=== PATIENT | male | born 1975 | race Caucasian/White ===

== ENCOUNTER 2017-04-04 16:57 | Emergency (ER) | payer OTHER ==
[2017-04-04] MEDS ORDERED: SODIUM CHLORIDE 0.9% 1,000 ML IV STA (17:22)
[2017-04-04 17:42] LABS: Basophils # (A) 0.1 k/uL (0-0.2); Basophils % (A) 1 %; CH 31.6; CHCM 35.4; Eosinophils # (A) 0.3 k/uL (0-0.7); Eosinophils % (A) 3 %; HCT 41.5 % (39.0-53.0); HDW 2.54; HGB 14.3 gm/dL (13.0-17.5); Luc # (Auto) 0.13; Luc % (Auto) 2; Lymphocytes # (A) 1.9 k/uL (1.0-4.8); Lymphocytes % (A) 22 %; MCH 30.8 pg (25.0-35.0); MCHC 34.4 g/dL (31.0-37.0); MCV 89.5 fL (80.0-100.0); Mean Platelet Volume 7.8; Monocytes # (A) 0.5 k/uL (0-1.0); Monocytes % (A) 6 %; Neutrophils # (A) 5.7 k/uL (1.3-7.7); Neutrophils % (A) 66 %; RBC 4.64 m/uL (4.30-5.90); RDW 12.8 % (11.5-15.5); WBC 8.6 k/uL (3.8-10.6); WBC (Perox) 8.17
[2017-04-04 17:46] LABS: INR 1.1 (<1.1); Partial Thromboplastin Time 25.3 sec (22.0-30.0)
[2017-04-04 17:47] LABS: ALT 29 U/L (21-72); AST 22 U/L (17-59); Alkaline Phosphatase 54 U/L (38-126); Anion Gap 11 mmol/L; Blood Urea Nitrogen 6 mg/dL (9-20); Calcium 10.1 mg/dL (8.4-10.2); Carbon Dioxide 28 mmol/L (22-30); Chloride 105 mmol/L (98-107); Glucose 91 mg/dL (74-99); Non-African American GFR(MDRD) >60 (>60 ml/min/1.73 sqM); Potassium 3.5 mmol/L (3.5-5.1); Sodium 144 mmol/L (137-145); Total Bilirubin 0.6 mg/dL (0.2-1.3); Total Protein 7.6 g/dL (6.3-8.2)
--- NOTE | 2017-04-04 17:57 | CT ---
EXAMINATION TYPE: CT brain wo con DATE OF EXAM: 04/04/2017 5:44 PM COMPARISON: 01/20/2015 HISTORY: 42-year-old male complains of entire body right side numbness. TECHNIQUE: Examination was done in axial plane without intravenous contrast. Coronal and sagittal r econstructions performed. CT DLP: 1041.5 mGycm Automated exposure control for dose reduction was used. FINDINGS: There is no evidence of acute intracranial hemorrhage, acute ischemic changes, mass, mass-effect, or extra-axial fluid collection. There is no effacement of cerebral sulci or basal subarachnoid cister ns. There is no hydrocephalus. There is no midline shift. Johnson-white matter distinction is preserv ed. Orbits and globes are intact. Paranasal sinuses and mastoid air cells well pneumatized. IMPRESSION: No acute intracranial abnormality seen.
--- NOTE | 2017-04-04 17:59 | XR ---
EXAMINATION TYPE: XR chest 2V DATE OF EXAM: 04/04/2017 5:50 PM COMPARISON: None HISTORY: 42-year-old male with right-sided weakness, altered mental status TECHNIQUE: Frontal and lateral views FINDINGS: The cardiomediastinal silhouette, aorta, and pulmonary vasculature are within normal limits. Mild bro nchial wall thickening has a chronic appearance, possible chronic bronchitis/asthma. Lungs and pleura l spaces otherwise clear. IMPRESSION: Chronic appearing changes without acute cardiopulmonary process.
[2017-04-04 18:01] LABS: Creatine Kinase 102 U/L (55-170)
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
[2017-04-04 18:15] LABS: Creatine Kinase MB 0.5 ng/mL (0.0-2.4); Troponin I <0.012 ng/mL (0.000-0.034)
[2017-04-04 18:25] LABS: Appearance,Urine Clear (Clear); Bilirubin,Urine Negative (Negative); Glucose,Urine (UA) Negative (Negative); Ketones,Urine Negative (Negative); Leukocyte Esterase,Urine Negative (Negative); Nitrite,Urine Negative (Negative); PH, Urine 7.5 (5.0-8.0); Protein,Urine Negative (Negative); Specific Gravity,Urine 1.002 (1.001-1.035); UA Billing (MACRO vs. MICRO) CHEM; Urobilinogen,Urine <2.0 mg/dL (<2.0)
[2017-04-04 18:48] VITALS: TEMP 98.6
[2017-04-04] MEDS ORDERED: ASPIRIN 81 MG CHEW PO STA (19:24)
[2017-04-04 19:44] VITALS: BP 122/82; PULSE 77; RESP 20
== END 2017-04-04 20:17 | disposition home or self-care (01) ==
LOC: EC 16:57
DX: M62.81 Muscle weakness (generalized) (principal); F17.200 Nicotine dependence, unspecified, uncomplicated
CPT/HCPCS: 36415; 70450; 71020; 80053; 80306; 81003; 82550; 82553; 84443; 84484; 85025; 85610; 85730; 93005; 96360; 96361; 99284

== ENCOUNTER → 2017-05-18 | Outpatient (CLI) | payer OTHER ==
--- NOTE | 2017-05-18 08:12 | US ---
EXAMINATION TYPE: US carotid duplex BILAT DATE OF EXAM: 05/18/2017 COMPARISON: NONE CLINICAL HISTORY: 42-year-old male G45.9 Transient cerebral ischemic attack, unspecified. TIA, pt sta sara right side numbness TECHNIQUE: Carotid duplex ultrasound examination. Indirect Doppler criteria was utilized. FINDINGS: EXAM MEASUREMENTS: RIGHT: Peak Systolic Velocity (PSV) cm/sec ----- Right CCA: 95.2 ----- Right ICA: 83.1 ----- Right ECA: 98.5 ICA/CCA ratio: 0.9 RIGHT: End Diastole cm/sec ----- Right CCA: 38.0 ----- Right ICA: 39.1 ----- Right ECA: 25.9 LEFT: Peak Systolic Velocity (PSV) cm/sec ----- Left CCA: 100.0 ----- Left ICA: 78.7 ----- Left ECA: 102.6 ICA/CCA ratio: 0.8 LEFT: End Diastole cm/sec ----- Left CCA: 41.8 ----- Left ICA: 42.4 ----- Left ECA: 35.2 VERTEBRALS (direction of flow): Right Vertebral: Antegrade Left Vertebral: Antegrade CORONER NOTES: No significant stenosis seen IMPRESSION: No hemodynamically significant stenosis appreciated within either internal carotid artery. Criteria for Assigning % of Stenosis / Diameter reduction (Estimation based on the indirect measurements of the internal carotid artery velocities (ICA PSV). 1. Normal (no stenosis)=ICA PSV < 125 cm/s: ratio < 2.0: ICA EDV<40 cm/s. 2. Less than 50% stenosis=ICA PSV < 125 cm/s: ratio < 2.0: ICA EDV<40 cm/s. 3. 50 to 69% stenosis=ICA PSV of 125 to 230 cm/s: ration 2.0 ? 4.0: ICA EDV 40-100 cm/s. 4. Greater than 70% stenosis to near occlusion= ICA PSV > 230 cm/s: ratio > 4.0: ICA EDV > 100 cm/s. 5. Near occlusion= ICA PSV velocities may be low or undetectable: variable ratio and ICA EDV. 6. Total occlusion=unable to detect flow.
[2017-05-18 08:50] LABS: CH 31.3; CHCM 34.8; HDW 2.37; HGB 14.9 gm/dL (13.0-17.5); MCH 30.5 pg (25.0-35.0); MCHC 33.9 g/dL (31.0-37.0); MCV 90.2 fL (80.0-100.0); Mean Platelet Volume 7.7; RBC 4.87 m/uL (4.30-5.90); RDW 14.3 % (11.5-15.5); WBC 5.7 k/uL (3.8-10.6)
[2017-05-18 09:06] LABS: ALT 35 U/L (21-72); AST 23 U/L (17-59); Alkaline Phosphatase 76 U/L (38-126); Anion Gap 15 mmol/L; Blood Urea Nitrogen 12 mg/dL (9-20); Calcium 10.3 mg/dL (8.4-10.2); Carbon Dioxide 25 mmol/L (22-30); Chloride 104 mmol/L (98-107); Cholesterol 212 mg/dL (<200); Glucose 94 mg/dL (74-99); HDL Cholesterol 58 mg/dL (40-60); Non-African American GFR(MDRD) >60 (>60 ml/min/1.73 sqM); Potassium 4.4 mmol/L (3.5-5.1); Sodium 144 mmol/L (137-145); Total Bilirubin 0.8 mg/dL (0.2-1.3); Total Protein 8.3 g/dL (6.3-8.2); Triglycerides 145 mg/dL (<150)
[2017-05-18 09:10] LABS: INR 1.1 (<1.1); Prothrombin Time 10.7 sec (9.0-12.0)
--- NOTE | 2017-05-18 09:12 | XR ---
EXAMINATION TYPE: XR lumbar spine with bend/flex DATE OF EXAM: 05/18/2017 COMPARISON: NONE HISTORY: Low back pain TECHNIQUE: Three-view lumbar spine with additional flexion and extension and lateral views in the sta nding position FINDINGS: There 5 lumbar-type vertebral bodies. The pedicles are intact. A metallic foreign body is a t the level of the sacrum. Disc heights are preserved. Vertebral body heights are preserved. Vertebral body alignment is preserved with flexion and extension. No subluxation is evident. IMPRESSION: 1. Normal three-view lumbar spine. 2. Normal flexion and extension
--- NOTE | 2017-05-18 09:14 | XR ---
EXAMINATION TYPE: XR cervical spine w flex/ext DATE OF EXAM: 05/18/2017 COMPARISON: NONE HISTORY: Cephalgia TECHNIQUE: 5 view cervical spine with flexion and extension views FINDINGS: Neural foramen are patent. Prevertebral space is normal. Disc heights are preserved. Verteb ral body heights are preserved. Posterior spinal lamellar line is intact. Vertebral body alignment is preserved through flexion and extension. There is some limitation of the odontoid with overlying inc isors. IMPRESSION: 1. Normal cervical spine. 2. Preserved alignment with flexion and extension.
--- NOTE | 2017-05-18 09:15 | XR ---
EXAMINATION TYPE: XR thoracic spine complete DATE OF EXAM: 05/18/2017 COMPARISON: NONE HISTORY: Thoracic spine pain TECHNIQUE: Three-view thoracic spine FINDINGS: Disc heights are preserved. Vertebral body heights are preserved. Alignment is normal. Ther e are 12 thoracic type vertebral bodies. The pedicles are intact. IMPRESSION: 1. Normal thoracic spine.
[2017-05-20 13:50] LABS: Protein C (Activity) 119 % (70 - 130); Protein S (Activity) 118 % (65 - 140); Protein S Antigen 124 % (50 - 140)
== END | disposition home or self-care (01) ==
LOC: RADUSWWP 07:43
PROVIDERS: ATTEND Psychiatry & Neurology Neurology
DX: G45.9 Transient cerebral ischemic attack, unspecified (principal); M54.2 Cervicalgia; M54.5 Low back pain; M54.6 Pain in thoracic spine; R20.2 Paresthesia of skin
CPT/HCPCS: 72052; 72072; 72114; 80053; 80061; 81240; 81241; 81291; 83090; 85027; 85300; 85301; 85302; 85303; 85305; 85306; 85379; 85384; 85610; 85613; 85730; 86147; 93880

== ENCOUNTER 2019-04-24 22:08 | Emergency (ER) | payer OTHER ==
[2019-04-24] MEDS ORDERED: SODIUM CHLORIDE 0.9% 1,000 ML IV STA (22:36)
[2019-04-24] MEDS ORDERED: KETOROLAC 30 MG/ML 1 ML VIAL IVP STA (22:36)
[2019-04-24] MEDS ORDERED: methylPREDNISolone SOD SUCCI 125 MG/2 ML VIAL IV STA (22:36)
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
[2019-04-24 23:11] LABS: ALT 35 U/L (21-72); AST 43 U/L (17-59); African American GFR (CKD) >90 (>60 ml/min/1.73 sqM); Albumin 4.9 g/dL (3.5-5.0); Alkaline Phosphatase 69 U/L (38-126); Anion Gap 12 mmol/L; Blood Urea Nitrogen 7 mg/dL (9-20); Calcium 9.4 mg/dL (8.4-10.2); Carbon Dioxide 24 mmol/L (22-30); Chloride 111 mmol/L (98-107); Glucose 90 mg/dL (74-99); Magnesium 2.2 mg/dL (1.6-2.3); Potassium 4.2 mmol/L (3.5-5.1); Sodium 147 mmol/L (137-145); Total Bilirubin 0.3 mg/dL (0.2-1.3); Total Protein 7.9 g/dL (6.3-8.2)
--- NOTE | 2019-04-24 23:46 | CT ---
EXAM: CT Lumbar Spine Without Intravenous Contrast CLINICAL HISTORY: ITS.REASON CT Reason: Pain TECHNIQUE: Axial computed tomography images of the lumbar spine without intravenous contrast. CTDI is 20 mGy and DLP is 625 mGy-cm. This CT exam was performed using one or more of the following dose reduction techniques: automated exposure control, adjustment of the mA and/or kV according to patient size, and/or use of iterative reconstruction technique. COMPARISON: 01/20/15 CT lumbar spine FINDINGS: Vertebrae: Unchanged. In the left sacrum. No acute fracture. Discs/spinal canal/neural foramina: No spinal canal stenosis. Soft tissues: Subcentimeter stone in the gallbladder neck. IMPRESSION: No acute fracture or subluxation. Subcentimeter stone in the gallbladder neck.
[2019-04-24 23:55] VITALS: RESP 16
[2019-04-25 00:47] VITALS: BP 119/62; PULSE 67; TEMP 98.6
== END 2019-04-25 00:50 | disposition home or self-care (01) ==
LOC: EC 22:08
DX: S39.012A Strain of muscle, fascia and tendon of lower back, initial encounter (principal); L98.9 Disorder of the skin and subcutaneous tissue, unspecified; F17.200 Nicotine dependence, unspecified, uncomplicated; Z87.828 Personal history of other (healed) physical injury and trauma
CPT/HCPCS: 36415; 80053; 83735; 72131; 99284; 96374; 96375; 96361 ×2; J2930; J1885

== ENCOUNTER 2019-06-23 10:24 | Emergency (ER) | payer OTHER ==
[2019-06-23] MEDS ORDERED: PANTOPRAZOLE 40 MG/10 ML VIAL IVP STA (10:57)
[2019-06-23] MEDS ORDERED: SODIUM CHLORIDE 0.9% 1,000 ML IV STA ×2 (10:57)
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
[2019-06-23 11:53] LABS: ALT 30 U/L (21-72); AST 31 U/L (17-59); African American GFR (CKD) >90 (>60 ml/min/1.73 sqM); Albumin 4.8 g/dL (3.5-5.0); Alkaline Phosphatase 73 U/L (38-126); Amylase 38 U/L (30-110); Anion Gap 12 mmol/L; Blood Urea Nitrogen 6 mg/dL (9-20); Carbon Dioxide 23 mmol/L (22-30); Chloride 103 mmol/L (98-107); Glucose 91 mg/dL (74-99); Potassium 3.9 mmol/L (3.5-5.1); Sodium 138 mmol/L (137-145)
[2019-06-23 12:01] LABS: INR 0.9 (<1.2); Partial Thromboplastin Time 26.4 sec (22.0-30.0); Prothrombin Time 10.1 sec (9.0-12.0)
[2019-06-23 12:04] LABS: Basophils % (A) 1 %; Eosinophils # (A) 0.3 k/uL (0-0.7); Eosinophils % (A) 5 %; HCT 44.2 % (39.0-53.0); HGB 15.3 gm/dL (13.0-17.5); Lymphocytes # (A) 1.3 k/uL (1.0-4.8); Lymphocytes % (A) 23 %; MCH 33.7 pg (25.0-35.0); MCHC 34.5 g/dL (31.0-37.0); MCV 97.7 fL (80.0-100.0); Monocytes # (A) 0.4 k/uL (0-1.0); Monocytes % (A) 7 %; Neutrophils # (A) 3.7 k/uL (1.3-7.7); Neutrophils % (A) 64 %; Platelet Count 205 k/uL (150-450); RBC 4.52 m/uL (4.30-5.90); RDW 13.7 % (11.5-15.5); WBC 5.8 k/uL (3.8-10.6)
--- NOTE | 2019-06-23 12:17 | CT ---
EXAMINATION TYPE: CT brain wo con DATE OF EXAM: 06/23/2019 COMPARISON: 04/04/2017 HISTORY: Headache with visual disturbance CT DLP: 1099.4 mGycm. Automated Exposure Control for Dose Reduction was Utilized. TECHNIQUE: CT scan of the head is performed without contrast. FINDINGS: There is no acute intracranial hemorrhage, mass effect, or midline shift identified. The ventricles and sulci are within normal limits in size. The globes are intact and the visualized sin uses are clear. IMPRESSION: No acute intracranial hemorrhage, mass effect, or midline shift is seen. If there is con cern for acute ischemia correlate with MRI .
--- NOTE | 2019-06-23 12:42 | CT ---
EXAMINATION TYPE: CT abdomen pelvis w con DATE OF EXAM: 06/23/2019 COMPARISON: 01/20/2015 HISTORY: Generalized pain with nausea and diarrhea on and off for 1 month with dark red in stool CT DLP: 747.5 mGycm Automated exposure control for dose reduction was used. CONTRAST: CT scan of the abdomen pelvis is performed with IV Contrast, patient injected with 100 mL of Isovue 3 00. FINDINGS- LUNG BASES-subsegmental changes at the lung bases suggestive of atelectasis. LIVER/GB-tiny gallstone or polyp noted. PANCREAS- No gross abnormality is seen. SPLEEN- No gross abnormality is seen. ADRENALS- No gross abnormality is seen. KIDNEYS/BLADDER- no hydronephrosis nephrolithiasis or renal mass. BOWEL-bowel gas pattern is nonspecific. There is evidence of previous extensive postsurgical change. Air seen throughout the colon to the level the rectum. Small hiatal hernia noted.. LYMPH NODES- No greater than 1cm abdominal or pelvic lymph nodes areappreciated. OSSEOUS STRUCTURES-hypertrophic and degenerative change of the spine metallic foreign body overlying the left sacrum.. OTHER- fat-containing anterior abdominal wall hernia in the periumbilical region. No free fluid. No free air. Bladder distends normally. IMPRESSION- 1. Nonspecific gas pattern with no diagnostic evidence of obstruction. There is extensive postsurgica l change. 2. Tiny gallstone favored over gallbladder polyp 3. Basilar subsegmental consolidation more typical of atelectasis than pneumonia correlate clinically .
[2019-06-23 12:48] LABS: Appearance,Urine Clear (Clear); Bilirubin,Urine Negative (Negative); Blood,Urine Negative (Negative); Color,Urine Light Yellow; Glucose,Urine (UA) Negative (Negative); Ketones,Urine Trace (Negative); Leukocyte Esterase,Urine Negative (Negative); Nitrite,Urine Negative (Negative); Protein,Urine Negative (Negative); Specific Gravity,Urine 1.014 (1.001-1.035); Urobilinogen,Urine <2.0 mg/dL (<2.0)
[2019-06-23 14:12] VITALS: BP 127/94; PULSE 97; RESP 17; TEMP 97.9
== END 2019-06-23 14:11 | disposition home or self-care (01) ==
LOC: EC 10:24
DX: H53.8 Other visual disturbances (principal); R11.2 Nausea with vomiting, unspecified; Z86.19 Personal history of other infectious and parasitic diseases; F17.200 Nicotine dependence, unspecified, uncomplicated
CPT/HCPCS: 36415; 93005; 80053; 82150; 83605; 83690; 85025; 85610; 85730; 82272; 81003; 87086; 70450; 74177; 99285; 96374; 96361 ×2; C9113; Q9967

== ENCOUNTER 2020-09-19 03:25 | Emergency (ER) | payer OTHER ==
[2020-09-19 03:31] VITALS: RESP 18; TEMP 98.2
[2020-09-19] MEDS ORDERED: MAG HYDROX/AL HYDROX/SIMETH 30 ML, HYOSCYAMINE ELIXIR 10 ML, LIDOCAINE VISCOUS 2% 10 ML PO STA ×3 (03:45)
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
[2020-09-19 04:04] LABS: Basophils # (A) 0.1 k/uL (0-0.2); Basophils % (A) 2 %; Eosinophils # (A) 0.2 k/uL (0-0.7); Eosinophils % (A) 5 %; HCT 44.8 % (39.0-53.0); Lymphocytes % (A) 21 %; MCH 32.8 pg (25.0-35.0); MCHC 33.6 g/dL (31.0-37.0); MCV 97.7 fL (80.0-100.0); Mean Platelet Volume 8.8; Monocytes # (A) 0.3 k/uL (0-1.0); Monocytes % (A) 6 %; Neutrophils # (A) 3.3 k/uL (1.3-7.7); Neutrophils % (A) 65 %; Platelet Count 147 k/uL (150-450); RBC 4.58 m/uL (4.30-5.90); RDW 11.6 % (11.5-15.5)
[2020-09-19 04:13] LABS: ALT 75 U/L (4-49); AST 65 U/L (17-59); African American GFR (CKD) >90 (>60 ml/min/1.73 sqM); Albumin 4.3 g/dL (3.5-5.0); Alkaline Phosphatase 79 U/L (38-126); Amylase <30 U/L (30-110); Anion Gap 10 mmol/L; Blood Urea Nitrogen 8 mg/dL (9-20); Calcium 9.5 mg/dL (8.4-10.2); Carbon Dioxide 21 mmol/L (22-30); Chloride 101 mmol/L (98-107); Glucose 111 mg/dL (74-99); Lipase 106 U/L (23-300); Non-African American GFR(CKD) >90 (>60 ml/min/1.73 sqM); Potassium 3.8 mmol/L (3.5-5.1); Sodium 132 mmol/L (137-145); Total Bilirubin 0.9 mg/dL (0.2-1.3); Total Protein 7.7 g/dL (6.3-8.2)
--- NOTE | 2020-09-19 04:50 | CT ---
EXAM: CT Abdomen and Pelvis Without Intravenous Contrast CLINICAL HISTORY: abdominal pain TECHNIQUE: Axial computed tomography images of the abdomen and pelvis without intravenous contrast. CTDI is 9.57 mGy and DLP is 536.3 mGy-cm. This CT exam was performed using one or more of the following dose reduction techniques: automated exposure control, adjustment of the mA and/or kV according to patient size, and/or use of iterative reconstruction technique. COMPARISON: No relevant prior studies available. FINDINGS: Lung bases: Unremarkable. No mass. No consolidation. ABDOMEN: Liver: Mild hepatomegaly, measuring up to 17.7 cm in greatest craniocaudad dimension, with steatosis. Gallbladder and bile ducts: Cholelithiasis in a mildly prominent gallbladder. Pancreas: Unremarkable. No ductal dilation. Spleen: Unremarkable. No splenomegaly. Adrenals: Unremarkable. No mass. Kidneys and ureters: Unremarkable. No obstructing stones. No hydronephrosis. Stomach and bowel: Postoperative changes involving the proximal small bowel. Lipomatosis of the colon, nonspecific, although can be seen in chronic IBD. No obstruction. No mucosal thickening. PELVIS: Appendix: Status post appendectomy. Bladder: Urinary bladder wall thickening likely present, which may represent chronic bladder outlet obstruction given the enlarged prostate. Cystitis would be included in the differential. No stones. Reproductive: Prostatomegaly, measuring up to 5.2 cm in greatest transverse dimension. ABDOMEN and PELVIS: Intraperitoneal space: Unremarkable. No free air. No significant fluid collection. Bones/joints: No acute fracture. No dislocation. Soft tissues: Moderate left sided fat-containing paraumbilical hernia. Moderate/large fat-containing supraumbilical hernia. Vasculature: Mild vascular calcifications involving the intra- abdominal aorta. No abdominal aortic aneurysm. Lymph nodes: Unremarkable. No enlarged lymph nodes. IMPRESSION: 1. Cholelithiasis in a mildly prominent gallbladder. Right upper quadrant ultrasound is recommended for further evaluation. 2. Mild hepatomegaly with steatosis. 3. Urinary bladder wall thickening likely present, which may represent chronic bladder outlet obstruction given the enlarged prostate. Cystitis would be included in differential. Correlate with urinalysis. 4. Moderate left sided fat-containing paraumbilical hernia. Moderate/large fat-containing supraumbilical hernia.
[2020-09-19 06:10] LABS: Appearance,Urine Clear (Clear); Bilirubin,Urine Negative (Negative); Blood,Urine Negative (Negative); Color,Urine Yellow; Glucose,Urine (UA) Negative (Negative); Ketones,Urine 1+ (Negative); Leukocyte Esterase,Urine Negative (Negative); Nitrite,Urine Negative (Negative); Protein,Urine Trace (Negative); Specific Gravity,Urine 1.019 (1.001-1.035)
[2020-09-19] MEDS ORDERED: NALOXONE 0.4 MG/ML 1 ML VIAL IV PRN (06:15)
[2020-09-19 06:37] VITALS: BP 141/92; PULSE 98
== END 2020-09-19 06:50 | disposition home or self-care (01) ==
LOC: EC 03:25
DX: K43.9 Ventral hernia without obstruction or gangrene (principal); K42.9 Umbilical hernia without obstruction or gangrene; F17.200 Nicotine dependence, unspecified, uncomplicated; Z90.89 Acquired absence of other organs
CPT/HCPCS: 36415; 74176; 80053; 81003; 82150; 83605; 83690; 84484; 85025; 93005; 99284

== ENCOUNTER → 2020-10-02 | Outpatient (CLI) | payer OTHER ==
[2020-10-02 13:25] LABS: Basophils # (A) 0.1 k/uL (0-0.2); Basophils % (A) 1 %; Eosinophils # (A) 0.3 k/uL (0-0.7); Eosinophils % (A) 4 %; HCT 44.6 % (39.0-53.0); HGB 14.8 gm/dL (13.0-17.5); Lymphocytes # (A) 1.5 k/uL (1.0-4.8); Lymphocytes % (A) 22 %; MCH 31.8 pg (25.0-35.0); MCHC 33.2 g/dL (31.0-37.0); MCV 95.7 fL (80.0-100.0); Mean Platelet Volume 8.1; Monocytes # (A) 0.4 k/uL (0-1.0); Monocytes % (A) 6 %; Neutrophils # (A) 4.5 k/uL (1.3-7.7); Neutrophils % (A) 66 %; Platelet Count 270 k/uL (150-450); RBC 4.66 m/uL (4.30-5.90); RDW 12.3 % (11.5-15.5); WBC 6.8 k/uL (3.8-10.6)
== END | disposition home or self-care (01) ==
LOC: LABPAT 11:03
PROVIDERS: ATTEND Surgery
DX: Z01.818 Encounter for other preprocedural examination (principal); K43.0 Incisional hernia with obstruction, without gangrene
CPT/HCPCS: 36415; 85025

== ENCOUNTER 2020-10-05 06:17 | Day surgery (SDC) | payer OTHER ==
[2020-10-04 09:04] VITALS: BMI 25.8
[~2020-10-05 06:17] MED LIST: ACETAMINOPHEN TAB 500 MG TAB PO ONE; DEXAMETHASONE SOD PHOSPHATE 4 MG/ML 1 ML VIAL IV ONE; HEPARIN SODIUM,PORCINE 5,000 UNIT/ML 1 ML VIAL SQ ONE; HYDROmorphone 0.5 MG/0.5 ML SYRINGE IVP PRN; LACTATED RINGERS 1,000 ML IV SCH; MIDAZOLAM 2 MG/2 ML VIAL IV PRN; ONDANSETRON 4 MG/2 ML VIAL IVP ONE; SCOPOLAMINE 1.5MG/72HR PATCH TRANSDERM ONE
[2020-10-05] MEDS ORDERED: MIDAZOLAM 2 MG/2 ML VIAL ONE (07:44)
[2020-10-05] MEDS ORDERED: SUCCINYLCHOLINE CHLORIDE 100 MG/5 ML SYR IV ONE (07:44)
[2020-10-05] MEDS ORDERED: ROCURONIUM 10 MG/ML (10 ML VIAL) IV ONE (07:44)
[2020-10-05] MEDS ORDERED: GLYCOPYRROLATE 0.2 MG/ML 2 ML VIAL ONE (07:44)
[2020-10-05] MEDS ORDERED: KETOROLAC 15 MG/ML 1 ML VIAL ONE (07:44)
[2020-10-05] MEDS ORDERED: NEOSTIGMINE 1 MG/ML 10 ML VIAL ONE (07:44)
[2020-10-05] MEDS ORDERED: fentaNYL (PF) 50 MCG/ML 2 ML AMP ONE (07:44)
[2020-10-05] MEDS ORDERED: LIDOCAINE 1% INJ 10MG/ML (20 ML MDV) ONE (07:44)
[2020-10-05] MEDS ORDERED: PROPOFOL 10 MG/ML 20 ML VIAL IV ONE (07:44)
[2020-10-05] MEDS ORDERED: LIDOCAINE 1%-EPI 1:100,000 20 ML VIAL SQ ONE (08:23)
--- NOTE | 2020-10-05 08:27 | P.OP ---
Date of Procedure: 10/05/20 Preoperative Diagnosis: Cholelithiasis Postoperative Diagnosis: Cholelithiasis Procedure(s) Performed: Laparoscopic cholecystectomy Anesthesia: MARYAN Surgeon: Robert Pruitt Estimated Blood Loss (ml): 5 Pathology: other (Gallbladder) Condition: stable Disposition: PACU Description of Procedure: The patient was placed on the operating table. The patient received a general endotracheal tube anesthesia. The patients abdomen was prepped and draped in the usual sterile fashion. Through an infraumbilical stab incision, the fascia of the anterior abdominal wall was grasped with a pair of Kochers and then the Veress needle was placed in the peritoneal cavity. Position of the Veress needle was confirmed with positive drop test. The abdomen was then insufflated. After adequate insufflation, the 10 mm trocar was placed in the peritoneal cavity. Following this the laparoscope was placed in the peritoneal cavity. The patient was placed in the head-up, right side up position and then a 5 mm trocar was placed in the right lateral and right subcostal position under direct visualization. A 8 mm trocar was placed in the epigastric position. The gallbladder was grasped in the fundus and infundibulum. Traction on the gallbladder was placed in the lateral and the cephalad positions. The triangle of Calot was visualized.. The cystic duct was bluntly dissected until the union of the cystic duct and common bile duct was seen. A critical view of safety was achieved. The cystic duct was then divided and sealed with the Harmonic scissors. A PDS Endoloop was then placed throughout the cystic duct stump. The cystic artery divided and sealed with the Harmonic scissors. The gallbladder was then removed from the liver bed using Harmonic scissors. The gallbladder was then extracted through the epigastric port site. Operative field was checked for any bleeding spots and Harmonic scissors was used to coagulate the liver bed. The abdomen was irrigated. The trocars were removed. The skin was closed using interrupted 3-0 Vicryl suture. Dermabond dressing were applied. The patient tolerated the procedure well.
[2020-10-05 08:38] VITALS: TEMP 98
[2020-10-05 08:52] VITALS: RESP 16
[2020-10-05 09:51] VITALS: BP 119/83; PULSE 91
== END 2020-10-05 10:15 | disposition home or self-care (01) ==
LOC: OR 06:17
PROVIDERS: ATTEND Surgery
DX: K80.10 Calculus of gallbladder with chronic cholecystitis without obstruction (principal); F17.210 Nicotine dependence, cigarettes, uncomplicated; Z98.890 Other specified postprocedural states
CPT/HCPCS: 88304; 47562; J2250; J1644; J1100; J2710; J0690; J2405; J2001; J3010; J1885; J0330; J2704

== ENCOUNTER 2020-10-17 09:00 | Day surgery (SDC) | payer OTHER ==
[2020-10-10 15:28] VITALS: BMI 25.8
[~2020-10-17 09:00] MED LIST changes: -ACETAMINOPHEN TAB 500 MG TAB PO ONE; +ACETAMINOPHEN TAB 500 MG TAB PO PRN; -HEPARIN SODIUM,PORCINE 5,000 UNIT/ML 1 ML VIAL SQ ONE; +HEPARIN SODIUM,PORCINE 5,000 UNIT/ML 1 ML VIAL SQ PRN; -MIDAZOLAM 2 MG/2 ML VIAL IV PRN; -SCOPOLAMINE 1.5MG/72HR PATCH TRANSDERM ONE
[2020-10-17] MEDS ORDERED: fentaNYL (PF) 50 MCG/ML 2 ML AMP ONE (12:52)
[2020-10-17] MEDS ORDERED: PROPOFOL 10 MG/ML 20 ML VIAL IV ONE (12:52)
[2020-10-17] MEDS ORDERED: KETAMINE 10 MG/ML 20 ML VIAL ONE (12:52)
[2020-10-17] MEDS ORDERED: SUCCINYLCHOLINE CHLORIDE 100 MG/5 ML SYR IV ONE (12:52)
[2020-10-17] MEDS ORDERED: ROCURONIUM 10 MG/ML (10 ML VIAL) IV ONE (12:52)
[2020-10-17] MEDS ORDERED: GLYCOPYRROLATE 0.2 MG/ML 2 ML VIAL ONE (12:52)
[2020-10-17] MEDS ORDERED: NEOSTIGMINE 1 MG/ML 10 ML VIAL ONE (12:52)
[2020-10-17] MEDS ORDERED: LIDOCAINE 1% INJ 10MG/ML (20 ML MDV) ONE (12:52)
[2020-10-17] MEDS ORDERED: KETOROLAC 15 MG/ML 1 ML VIAL ONE (12:52)
[2020-10-17] MEDS ORDERED: MIDAZOLAM 2 MG/2 ML VIAL ONE (12:52)
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
[2020-10-17] MEDS ORDERED: BUPIVACAINE (PF) 0.25% 30 ML VIAL SQ ONE ×2 (13:25→13:31)
[2020-10-17] MEDS ORDERED: LACTATED RINGERS 1,000 ML IV ONE (13:32)
[2020-10-17 13:48] VITALS: TEMP 97
[2020-10-17] MEDS ORDERED: hydrALAZINE HCL 20 MG/ML 1 ML VIAL IVP ONE (14:02)
[2020-10-17 14:04] VITALS: RESP 16
[2020-10-17 15:47] VITALS: BP 109/71; PULSE 81
--- NOTE | 2020-11-23 13:02 | P.OP ---
Date of Procedure: 10/17/20 Preoperative Diagnosis: Incisional hernia Postoperative Diagnosis: Incisional hernia Procedure(s) Performed: Open repair of incisional hernia Partial omentectomy Anesthesia: MARYAN Surgeon: Robert Pruitt Estimated Blood Loss (ml): 10 Pathology: other (Omentum) Condition: stable Disposition: PACU Description of Procedure: The patient's placed the operative table in the supine position. He received general anesthesia. His abdomen was prepped and draped usual sterile fashion. The skin was incised in midline along his hernia. Using cautery the subcutaneous tissue divided. The hernia sac was then opened. The incarcerated omentum was then transected to pathology. The fascial defect was then closed using [id number] 0 Ethibond sutures. And then a piece of Prolene mesh was placed over top the repair and secured with 2-0 Prolene suture. A BALDO drains is without apparent brought through separate stab incision. Andi's fascia closed with 0 Vicryl. Skin was closed with jeronimo. Patient top she will was sent to recovery room stable condition.
== END 2020-10-17 16:07 | disposition home or self-care (01) ==
LOC: OR 09:00
PROVIDERS: ATTEND Surgery
DX: K43.0 Incisional hernia with obstruction, without gangrene (principal); K21.9 Gastro-esophageal reflux disease without esophagitis; Z90.49 Acquired absence of other specified parts of digestive tract; Z98.890 Other specified postprocedural states; F17.210 Nicotine dependence, cigarettes, uncomplicated; Z90.89 Acquired absence of other organs
CPT/HCPCS: 88305; 49561; 49568; J2250; J0360; J1644; J1100; J2710; J0690; J2405; J2001; J3010; J1885; J0330; J2704

== ENCOUNTER 2023-02-01 21:16 | Inpatient (IN) | payer OTHER ==
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
[2023-02-01 22:08] LABS: Basophils % (A) 1 %; Eosinophils # (A) 0.3 k/uL (0-0.7); Eosinophils % (A) 5 %; HCT 44.3 % (39.0-53.0); HGB 15.5 gm/dL (13.0-17.5); Lymphocytes % (A) 35 %; MCH 34.1 pg (25.0-35.0); MCHC 34.9 g/dL (31.0-37.0); MCV 97.7 fL (80.0-100.0); Mean Platelet Volume 8.2; Monocytes # (A) 0.3 k/uL (0-1.0); Monocytes % (A) 5 %; Neutrophils % (A) 53 %; Platelet Count 208 k/uL (150-450); RBC 4.54 m/uL (4.30-5.90); RDW 12.4 % (11.5-15.5); WBC 5.8 k/uL (3.8-10.6)
[2023-02-01 22:26] LABS: African American GFR (CKD) >90 (>60 ml/min/1.73 sqM); Anion Gap 14 mmol/L; Blood Urea Nitrogen 2 mg/dL (9-20); Calcium 9.1 mg/dL (8.4-10.2); Carbon Dioxide 24 mmol/L (22-30); Chloride 101 mmol/L (98-107); Glucose 86 mg/dL (74-99); Non-African American GFR(CKD) >90 (>60 ml/min/1.73 sqM); Potassium 4.7 mmol/L (3.5-5.1); Sodium 139 mmol/L (137-145)
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
[2023-02-01 23:14] LABS: Alcohol 310 mg/dL
[2023-02-01] MEDS ORDERED: NALOXONE 0.4 MG/ML 1 ML VIAL IV PRN (23:45)
[2023-02-01] MEDS ORDERED: SODIUM CHLORIDE 0.9% 1,000 ML IV SCH (23:45)
[2023-02-01] MEDS ORDERED: LORazepam 1 MG TAB PO PRN ×2 (23:47)
[2023-02-01] MEDS ORDERED: THIAMINE 100 MG/ML 2 ML VIAL IM STA (23:47)
[2023-02-02 00:07] LABS: Magnesium 1.9 mg/dL (1.6-2.3); Phosphorus 4.3 mg/dL (2.5-4.5)
[2023-02-02 08:12] VITALS: RESP 18
[2023-02-02] MEDS ORDERED: THIAMINE 100 MG TAB PO SCH (09:00)
[2023-02-02 09:13] VITALS: BP 151/84; PULSE 81; TEMP 97.9
--- NOTE | 2023-02-02 22:32 | HP ---
HISTORY AND PHYSICAL This is a combined history and physical and discharge summary. CHIEF COMPLAINT: Alcohol intoxication. HISTORY OF PRESENT ILLNESS: This is a 48-year-old gentleman with a past medical history of GERD and multiple other medical problems, who presented to [facility] with complaints of leg numbness, and alcohol intoxication. Alcohol level was found to be significantly elevated at 310 yesterday, but considerably under management, the patient improved significantly. There are no signs of any DTs. There is no history of fever, rigors, chills. The patient will be discharged home today. PAST MEDICAL HISTORY: Reviewed include GERD. Rest of the history and rest of the chart is noted. MEDICATIONS: Vitamin B1. Rest of the medication noted. ALLERGIES: None. FAMILY HISTORY: No history of heart disease or strokes in the family. SOCIAL HISTORY: Heavy smoking. Heavy alcohol intake. REVIEW OF SYSTEMS: A 14-point review is negative except as mentioned earlier. PHYSICAL EXAMINATION: VITAL SIGNS: Pulse is 104, blood pressure 147/94, respirations 18. HEENT: Conjunctivae normal. NECK: No JVD. CARDIOVASCULAR: S1, S2 muffled. RESPIRATIONS: Breath sounds diminished at the bases. No rhonchi. No crackles. ABDOMEN: Soft. LEGS: No edema. NERVOUS SYSTEM: Nonfocal. SKIN: No ulcer, rash, bleeding. JOINTS: No active deforming arthropathy. LABORATORY DATA: Reviewed. ASSESSMENT: 1. Acute alcohol intoxication. 2. Gastroesophageal reflux disease. 3. History of right knee injury. RECOMMENDATIONS AND DISCUSSION: In this 48-year-old gentleman, who was admitted with alcohol intoxication, improved significantly. The patient is extremely keen on going home at this time. The patient has no features of any withdrawal symptoms. I would recommend the patient go home and follow up with primary physician closely and as well as attend alcohol rehab as an outpatient. Please refer to the discharge reconciliation sheet for discharge medications. The patient will be given multivitamins and thiamine and folic acid. MMODL / IJN: [id number] /
--- NOTE | 2023-02-03 14:25 | P.DS ---
Providers Date of admission: 02/02/23 00:01 Expected date of discharge: 02/02/23 Attending physician: Lion Zelaya MD Primary care physician: Stated None Hospital Course: Final diagnosis Acute alcohol intoxication Gastroesophageal reflux disease History of right leg injury continued ongoing nicotine abuse Discharge disposition Patient is being discharged in a stable condition with guarded prognosis to Home. Patient will follow-up with Dr. Ley in the outpatient setting upon discharge. Patient is to attend AA meetings and possibly alcohol rehab. Total time taken is greater than 35 minutes. Hospital course This is a 48-year-old male who was recently admitted With alcohol intoxication and maintained on CIWA protocol. Patient reports he drinks 3-4 times per week and does not feel he needs to go to rehab. Strongly encouraged CESSATION and possible AA meetings and discussing with primary care provider about possible alcohol rehab. Patient with right leg pain although improved and would recommend outpatient follow-up. Patient not experiencing any withdrawal symptoms and will be discharged home today. Currently no reports of chest pain, shortness of breath, or palpitations. Patient is afebrile. No reports of nausea or vomiting and patient is tolerating diet. Physical exam: Gen: This is a 48-year-old male who is awake, alert and oriented 3, thin built, well-developed HEENT: Head is atraumatic, normocephalic. Pupils equal, round. Sclerae is anicteric. NECK: Supple. No JVD. No lymphadenopathy. No thyromegaly. LUNGS: Clear to auscultation. No wheezes or rhonchi. No intercostal retractions. HEART: Regular rate and rhythm. No murmur. ABDOMEN: Soft. Bowel sounds are present. No masses. No tenderness. EXTREMITIES: No pedal edema. No calf tenderness. NEUROLOGICAL: Patient is awake, alert and oriented x3. Cranial nerves 2 through 12 are grossly intact. Please refer to medication reconciliation sheet for a list of medications. The impression and plan of care has been dictated by Marcy Orellana, Nurse Practitioner as directed. MD Lb I have performed a history and examination and MDM of this patient, discussed the same with the dictator, and agree with the dictator's assessment and plan as written ,documented as a scribe. Based on total visit time, I have performed more than 50% of the visit. Patient Condition at Discharge: Stable Plan - Discharge Summary New Discharge Prescriptions: New Multivitamins, Thera [Multivitamin] 1 tab PO DAILY #30 tablet Thiamine [Vitamin B-1] 100 mg PO DAILY 30 Days #30 tab Folic Acid 1 mg PO DAILY #30 tablet Discharge Medication List Folic Acid 1 mg PO DAILY #30 tablet 02/02/23 [Rx] Multivitamins, Thera [Multivitamin] 1 tab PO DAILY #30 tablet 02/02/23 [Rx] Thiamine [Vitamin B-1] 100 mg PO DAILY 30 Days #30 tab 02/02/23 [Rx] Follow up Appointment(s)/Referral(s): Moira Ley MD [STAFF PHYSICIAN] - 1 Week (Patient states that he is going to call and get established with a Primary Care Physician of his choosing) Patient Instructions/Handouts: Thiamine (By mouth), Folic Acid (By mouth), Multivitamins, Adult Formula (By mouth), Abuse of Alcohol (DC) Activity/Diet/Wound Care/Special Instructions: Activity Limited until follow-up Follow-up and establish with primary care provider Take medications as prescribed Avoid all alcohol intake Discharge/Stand Alone Forms: Area PCPs Discharge Disposition: HOME SELF-CARE
== END 2023-02-02 12:12 | disposition home or self-care (01) | DRG 897 ==
LOC: EC 21:16 → 4SSUR 02-02 00:01 → 5NMEDONC 02-02 07:09
PROVIDERS: ADMIT Internal Medicine; ATTEND Internal Medicine
DX: F10.229 Alcohol dependence with intoxication, unspecified (principal); F17.210 Nicotine dependence, cigarettes, uncomplicated; G89.29 Other chronic pain; M54.9 Dorsalgia, unspecified; K21.9 Gastro-esophageal reflux disease without esophagitis; Y90.8 Blood alcohol level of 240 mg/100 ml or more; Z71.6 Tobacco abuse counseling; Z71.41 Alcohol abuse counseling and surveillance of alcoholic; Z87.828 Personal history of other (healed) physical injury and trauma; Z87.19 Personal history of other diseases of the digestive system; Z90.49 Acquired absence of other specified parts of digestive tract
CPT/HCPCS: 36415; 72133; 80048; 80320; 83735; 84100; 85025; 96360; 96372; 99285